=== PATIENT | female | born 1935 | race Caucasian/White ===

== ENCOUNTER 2017-02-02 20:37 | Emergency (ER) | payer MEDICARE | END 2017-02-03 00:15 | disposition home or self-care (01) | LOC: ER 20:37 | DX: R31.0 Gross hematuria (principal); R79.1 Abnormal coagulation profile; R82.71 Bacteriuria; Q61.02 Congenital multiple renal cysts; I10 Essential (primary) hypertension; Z95.1 Presence of aortocoronary bypass graft; Z88.5 Allergy status to narcotic agent; Z88.2 Allergy status to sulfonamides; Z88.1 Allergy status to other antibiotic agents; Z79.899 Other long term (current) drug therapy; Z79.01 Long term (current) use of anticoagulants | CPT/HCPCS: 36415; 96374; J0696 ==